=== PATIENT | male | born 1990 | race African-American/Black ===

== ENCOUNTER 2016-10-29 07:46 | Inpatient (IN) | payer OTHER ==
[~2016-10-29] VITALS: Ht 167.6 cm; Wt 59.2 kg
[2016-10-29] VITALS (11 sets, daily range): BP systolic 95–136; BP diastolic 62–78; PULSE 78–114; RESP 12–22; TEMP 97.6–98.8; O2SAT 98–100
[2016-10-29 07:51] LABS: MEAN CORPUSCULAR HGB CONC 29.5 % (32.0-36.0)
[2016-10-29] MEDS ORDERED: SODIUM CHLOR 0.9% 1000 ML INJ 1,000 ML IV SCH (07:51)
--- NOTE | 2016-10-29 07:54 | PD ---
HPI Chief Complaint: laceration Time Seen by Provider: 07:51 Travel History International Travel<30 days: No Contact w/Intl Traveler<30days: No Traveled to known affect area: No History of Present Illness HPI Patient is a 25-year-old male presents from [facility] after intentionally cutting himself with a razor blade last night. Patient has had bilateral antecubital fossa laceration. Also has a superficial laceration of the dorsum of the left hand. Patient has been on seclusion in [facility]. Patient apparently cut his right before meals fossa last night and was glued at the [facility] at the [facility]. He has since reopen this wound. Patient on arrival is reluctant to give any information, he is alert and awake and protecting his airway but will not give me any history. PFS Past Medical History Narrative Medical Unable to obtain. Social History Tobacco Use: No Allergies-Medications (Allergen,Severity, Reaction): Coded Allergies: Haldol (Verified Allergy, Unknown, 10/29/16) Reported Meds & Prescriptions Reported Meds & Active Scripts Active No Active Prescriptions or Reported Medications Review of Systems Except as stated in HPI: all other systems reviewed are Neg Physical Exam Narrative GENERAL: Well-developed well-nourished, diaphoretic and tachycardic. SKIN: Warm and dry. There are 3 small lacerations that I can see on his person. He was stripped completely naked for my examination. He has lacerations running across the bilateral antecubital fossae approximately 2 cm in length each, it is through the fascia.. No active bleeding at this time. There is also a 1 cm laceration to the dorsum of his left hand again without any active bleeding and appears to be through the fascia. HEAD: Atraumatic. Normocephalic. EYES: Pupils equal and round. No scleral icterus. No injection or drainage. ENT: No nasal bleeding or discharge. Mucous membranes pink and moist. NECK: Trachea midline. No JVD. CARDIOVASCULAR: Regular rate and rhythm. No murmur appreciated. RESPIRATORY: No accessory muscle use. Clear to auscultation. Breath sounds equal bilaterally. GASTROINTESTINAL: Abdomen soft, non-tender, nondistended. Hepatic and splenic margins not palpable. MUSCULOSKELETAL: No obvious deformities. No clubbing. No cyanosis. No edema. Pulses are 2+ and bilaterally equal in all 4 extremities, patient has all range of motions and flexion extension of the wrist hands and forearms. NEUROLOGICAL: Awake and alert. No obvious cranial nerve deficits. Motor grossly within normal limits. Normal speech. PSYCHIATRIC: Appropriate mood and affect; insight and judgment normal. Data Data Last Documented VS Vital Signs Date Time Temp Pulse Resp B/P Pulse Ox O2 Delivery O2 Flow Rate FiO2 10/29/16 12:40 98.6 98 14 132/71 100 Room Air Orders Complete Blood Count With Diff (10/29/16 07:51) Basic Metabolic Panel (Bmp) (10/29/16 07:51) Iv Access Insert/Monitor (10/29/16 07:51) Ecg Monitoring (10/29/16 07:51) Oximetry (10/29/16 07:51) Sodium Chlor 0.9% 1000 Ml Inj (Ns 1000 M (10/29/16 07:51) Sodium Chloride 0.9% Flush (Ns Flush) (10/29/16 08:00) Lidocai-Epi 1%-1:100,000 Inj (Xylocaine- (10/29/16 08:00) Lactic Acid (10/29/16 08:29) Ondansetron Inj (Zofran Inj) (10/29/16 09:03) Ondansetron Odt (Zofran Odt) (10/29/16 09:15) Red Blood Cells (Rbc) (10/29/16 09:09) Blood Product Administration .UPON TRANSFUSION (10/29/16 09:09) Sodium Chlor 0.9% 250 Ml Inj (Ns 250 Ml (10/29/16 09:15) Type And Screen (10/29/16 09:09) Ondansetron Inj (Zofran Inj) (10/29/16 09:30) Sodium Chlor 0.9% 1000 Ml Inj (Ns 1000 M (10/29/16 10:15) Lactic Acid (10/29/16 10:42) Hgb & Hct (10/29/16 10:42) Admit Order (Ed Use Only) (10/29/16 ) Labs Laboratory Tests Test 10/29/16 10/29/16 10/29/16 10/29/16 08:20 09:00 10:41 11:15 White Blood Count 18.4 TH/MM3 Red Blood Count 4.28 MIL/MM3 Hemoglobin 8.0 GM/DL 5.1 GM/DL Hematocrit 27.1 % 16.9 % Mean Corpuscular Volume 63.4 FL Mean Corpuscular Hemoglobin 18.7 PG Mean Corpuscular Hemoglobin 29.5 % Concent Red Cell Distribution Width 22.5 % Platelet Count 253 TH/MM3 Mean Platelet Volume 8.6 FL Neutrophils (%) (Auto) 87.0 % Lymphocytes (%) (Auto) 7.7 % Monocytes (%) (Auto) 5.1 % Eosinophils (%) (Auto) 0.0 % Basophils (%) (Auto) 0.2 % Neutrophils # (Auto) 16.0 TH/MM3 Lymphocytes # (Auto) 1.4 TH/MM3 Monocytes # (Auto) 0.9 TH/MM3 Eosinophils # (Auto) 0.0 TH/MM3 Basophils # (Auto) 0.0 TH/MM3 CBC Comment AUTO DIFF Differential Comment AUTO DIFF CONFIRMED Polychromasia 2.0 % Spherocytes OCC Ovalocytes 1+ Acanthocytes OCC Keratocytes OCC Sodium Level 139 MEQ/L Potassium Level 3.8 MEQ/L Chloride Level 105 MEQ/L Carbon Dioxide Level 20.3 MEQ/L Anion Gap 14 MEQ/L Blood Urea Nitrogen 9 MG/DL Creatinine 1.24 MG/DL Estimat Glomerular Filtration 88 ML/MIN Rate Random Glucose 182 MG/DL Calcium Level 8.4 MG/DL Blood Type O POSITIVE O POSITIVE Antibody Screen NEGATIVE Crossmatch Leukocyte-Reduced Red Blood Cells Blood Bank Comment Lactic Acid Level 7.0 mmol/L 1.9 mmol/L MDM Medical Decision Making Medical Screen Exam Complete: Yes Emergency Medical Condition: Yes Differential Diagnosis Laceration, hypovolemia, blood loss anemia, suicide attempt. Narrative Course Patient was roomed in emergency Department, tachycardic and diaphoretic and concern for acute blood loss anemia. An 18-gauge ultrasound IV was placed in the left antecubital fossa, this was placed just medial to the laceration. Patient was given 2 L of fluid IV, lactic acid was 7 prior to fluid administration, he did vomit just prior to having an IV placed and Zofran was given as well. Patient was reassessed after 2 L of fluid bolus and artery had blood ordered at this point. His heart rate is improving and he is no longer nauseous. A repeat H&H was sent his hemoglobin is now 5 from 8, lactic acid is now normal. Blood transfusion is in process. Patient was to be discussed with Dr. Rose for admission. Patient was consented emergently for blood, he apparently has an undiagnosed psychosis is unwilling to give any history. He is under arrest and therefore there is no indication to Jaramillo act him. He does not had the ability to make his own medical decisions or refuse blood at this time. Critical Care Narrative Aggregate critical care time was 35 minutes. Time to perform other separately billable procedures was not included in the critical care time. My time did not include minutes spent treating any other patients simultaneously or on activities that did not directly contribute to the patient's treatment. The services I provided to this patient were to treat and/or prevent clinically significant deterioration that could result in: , disability, organ failure, permanent disability, need for intubation. I provided critical care services requiring my management, as noted below: Chart data review, documentation time, medication orders and management, vital sign assessments/reviewing monitor data, ordering and reviewing lab tests, ordering and interpreting/reviewing x-rays and diagnostic studies, care of the patient and discussion of the patient with the admitting physicians. Diagnosis Primary Impression: Hypovolemic shock Additional Impressions: Acute blood loss anemia Laceration Admitting Information Admitting Physician Requests: Admit Scripts No Active Prescriptions or Reported Meds Condition: Stable Dante Gotti MD Oct 29, 2016 07:54
[2016-10-29] MEDS ORDERED: LIDOCAINE 1%/EPINEPHrine 1:100,000 SOLN 20 ML VIAL INFIL ONE (08:00)
[2016-10-29] MEDS ORDERED: SODIUM CHLORIDE 0.9% FLUSH 5 ML FLUSH IVF PRN (08:00)
[2016-10-29 08:31] LABS: BASOPHIL % 0.2 % (0.0-2.0); HEMATOCRIT 27.1 % (39.0-51.0); LYMPH % 7.7 % (9.0-44.0); LYMPHOCYTE # 1.4 TH/MM3 (1.0-4.8); MEAN CELL VOLUME 63.4 FL (80.0-100.0); MEAN CORPUSCULAR HEMOGLOBIN 18.7 PG (27.0-34.0); MONO % 5.1 % (0.0-8.0); PLATELET COUNT 253 TH/MM3 (150-450); RED BLOOD COUNT 4.28 MIL/MM3 (4.50-5.90); RED CELL DISTRIBUTION WIDTH 22.5 % (11.6-17.2); WHITE BLOOD COUNT 18.4 TH/MM3 (4.0-11.0)
[2016-10-29 08:34] LABS: HEMO FLAGS AUTO DIFF
[2016-10-29 08:54] LABS: BICARBONATE 20.3 MEQ/L (21.0-32.0)
[2016-10-29 08:55] LABS: POTASSIUM 3.8 MEQ/L (3.5-5.1)
[2016-10-29] MEDS ORDERED: ONDANSETRON HCL 4 MG/2 ML VIAL ONE (09:03)
[2016-10-29 09:15] LABS: OVALOCYTES 1+ (NORMAL)
[2016-10-29] MEDS ORDERED: SODIUM CHLOR 0.9% 250 ML INJ 250 ML IV ONE (09:15)
[2016-10-29] MEDS ORDERED: ONDANSETRON ODT 4 MG TAB PO ONE (09:15)
[2016-10-29 09:17] LABS: ACANTHOCYTES OCC (NORMAL); KERATOCYTES OCC (NORMAL); SCAN/DIFF AUTO DIFF CONFIRMED; SPHEROCYTES OCC (NORMAL)
[2016-10-29] MEDS ORDERED: ONDANSETRON HCL 4 MG/2 ML VIAL IV PUSH ONE (09:30)
--- NOTE | 2016-10-29 09:48 | PD ---
Physical Exam Narrative I was asked by Dr. Gotti to repair patient's lacerations. Please see his H&P for full details. Data Data Last Documented VS Vital Signs Date Time Temp Pulse Resp B/P Pulse Ox O2 Delivery O2 Flow Rate FiO2 10/29/16 09:21 97.6 114 22 95/62 100 Room Air Orders Complete Blood Count With Diff (10/29/16 07:51) Basic Metabolic Panel (Bmp) (10/29/16 07:51) Iv Access Insert/Monitor (10/29/16 07:51) Ecg Monitoring (10/29/16 07:51) Oximetry (10/29/16 07:51) Sodium Chlor 0.9% 1000 Ml Inj (Ns 1000 M (10/29/16 07:51) Sodium Chloride 0.9% Flush (Ns Flush) (10/29/16 08:00) Lidocai-Epi 1%-1:100,000 Inj (Xylocaine- (10/29/16 08:00) Lactic Acid (10/29/16 08:29) Ondansetron Inj (Zofran Inj) (10/29/16 09:03) Ondansetron Odt (Zofran Odt) (10/29/16 09:15) Red Blood Cells (Rbc) (10/29/16 09:09) Blood Product Administration .UPON TRANSFUSION (10/29/16 09:09) Sodium Chlor 0.9% 250 Ml Inj (Ns 250 Ml (10/29/16 09:15) Type And Screen (10/29/16 09:09) Ondansetron Inj (Zofran Inj) (10/29/16 09:30) Labs Laboratory Tests Test 10/29/16 08:20 White Blood Count 18.4 TH/MM3 Red Blood Count 4.28 MIL/MM3 Hemoglobin 8.0 GM/DL Hematocrit 27.1 % Mean Corpuscular Volume 63.4 FL Mean Corpuscular Hemoglobin 18.7 PG Mean Corpuscular Hemoglobin 29.5 % Concent Red Cell Distribution Width 22.5 % Platelet Count 253 TH/MM3 Mean Platelet Volume 8.6 FL Neutrophils (%) (Auto) 87.0 % Lymphocytes (%) (Auto) 7.7 % Monocytes (%) (Auto) 5.1 % Eosinophils (%) (Auto) 0.0 % Basophils (%) (Auto) 0.2 % Neutrophils # (Auto) 16.0 TH/MM3 Lymphocytes # (Auto) 1.4 TH/MM3 Monocytes # (Auto) 0.9 TH/MM3 Eosinophils # (Auto) 0.0 TH/MM3 Basophils # (Auto) 0.0 TH/MM3 CBC Comment AUTO DIFF Differential Comment AUTO DIFF CONFIRMED Polychromasia 2.0 % Spherocytes OCC Ovalocytes 1+ Acanthocytes OCC Keratocytes OCC Sodium Level 139 MEQ/L Potassium Level 3.8 MEQ/L Chloride Level 105 MEQ/L Carbon Dioxide Level 20.3 MEQ/L Anion Gap 14 MEQ/L Blood Urea Nitrogen 9 MG/DL Creatinine 1.24 MG/DL Estimat Glomerular Filtration 88 ML/MIN Rate Random Glucose 182 MG/DL Calcium Level 8.4 MG/DL MDM Supervised Visit with JUICE: No Procedures Procedure Narrative LACERATION REPAIR LOCATION: Left antecubital LENGTH: Approximately 2 cm NUMBER OF STITCHES/SHARI: 1 simple interrupted and one simple mattress REPAIR: Verbal consent was obtained. The area of the laceration was cleaned and prepped. The laceration was infiltrated with lidocaine with epi. The wound was copiously irrigated and explored without evidence of foreign body, bony involvement, ligament injury, tendon injury, or neurovascular injury. The wound was closed using 4-0 nylon. This was a single layer repair. A sterile dressing was applied by nurse. The patient was advised to keep the affected area as clean and dry as possible using soap and water. There were no complications. Patient tolerated the procedure well. LACERATION REPAIR LOCATION: Right antecubital LENGTH: Approximately 2.5 cm NUMBER OF STITCHES/SHARI: 2 simple interrupted and one simple mattress REPAIR: Verbal consent was obtained. The area of the laceration was cleaned and prepped. The laceration was infiltrated with lidocaine with epi. The wound was copiously irrigated and explored without evidence of foreign body, bony involvement, ligament injury, tendon injury, or neurovascular injury. The wound was closed using 4-0 nylon. This was a single layer repair. A sterile dressing was applied by nurse. The patient was advised to keep the affected area as clean and dry as possible using soap and water. There were no complications. Patient tolerated the procedure well. LACERATION REPAIR LOCATION: Right hand dorsal aspect LENGTH: Approximately 1 cm NUMBER OF STITCHES/SHARI: 1 simple mattress REPAIR: Verbal consent was obtained. The area of the laceration was cleaned and prepped. The laceration was infiltrated with lidocaine with epi. The wound was copiously irrigated and explored without evidence of foreign body, bony involvement, ligament injury, tendon injury, or neurovascular injury. The wound was closed using 4-0 nylon. This was a single layer repair. A sterile dressing was applied by nurse. The patient was advised to keep the affected area as clean and dry as possible using soap and water. There were no complications. Patient tolerated the procedure well. Additional Instruction: Suicide watch until no longer suicidal: This means finger foods only, no sharps , paper scrubs. Bradley Moe Oct 29, 2016 09:48
[2016-10-29] MEDS ORDERED: SODIUM CHLOR 0.9% 1000 ML INJ 1,000 ML IV ONE (10:15)
[2016-10-29 11:32] LABS: REVIEW FLAG FINAL
[2016-10-29 11:36] LABS: HEMATOCRIT 16.9 % (39.0-51.0)
--- NOTE | 2016-10-29 16:11 | HHI.HP ---
[facility] No Primary Care Physician Admission Diagnosis Acute blood loss anemia, Laceration. Diagnoses: Chief Complaint: Anemia, laceration Travel History International Travel<30 Days: No Contact w/Intl Traveler <30 Da: No Traveled to Known Affected Are: No History of Present Illness This is a 25-year-old male patient who denies prior medical history or surgical interventions. Patient was brought in from corrections facility after self laceration 3. Patient does report he was trying to kill himself. Per report patient cut his bilateral antecubital and right hand with a razor blade. Patient lost a large amount of blood and was brought to the emergency department for evaluation. Patient was found to have severe symptomatic anemia was given 2 units packed red blood cells and emergency department. Patient evaluated by Dr. Rose reports he feels thirsty, lightheaded with standing and mildly nauseous. Patient denies chest pain diarrhea or constipation. Review of Systems Except as stated in HPI: all other systems reviewed are Neg Past Family Social History Past Medical History Denies prior medical history including diabetes hypertension anemia clotting or bleeding disorders Past Surgical History Denies prior surgeries Reported Medications Reports he does not take medications on a daily basis Allergies: Coded Allergies: Haldol (Verified Allergy, Unknown, 10/29/16) Active Ordered Medications Current Medications Medications (Trade) Dose Ordered Sig/Arely Route Start Time Stop Time Status Last Admin IV Flush 2 ml 2 ml UNSCH PRN IVF 10/29/16 08:00 (NS 250 ml Inj) 250 ml @ 15 mls/hr ONCE ONCE IV 10/29/16 09:15 10/30/16 01:54 10/29/16 12:25 Family History Reports was a family medical history positive for diabetes mellitus Social History Patient is currently in corrections facility. Patient reports he has 7 years left on his sentence Reports he smokes 1 cigarette per day Denies EtOH use Physical Exam Vital Signs Vital Signs Date Time Temp Pulse Resp B/P Pulse Ox O2 Delivery O2 Flow Rate FiO2 10/29/16 15:15 98.8 87 13 127/78 99 Room Air 10/29/16 13:50 80 14 126/66 100 10/29/16 12:40 98.6 98 14 132/71 100 Room Air 10/29/16 12:25 98.7 108 12 111/72 98 Room Air 10/29/16 09:55 82 12 115/62 100 Room Air 10/29/16 09:21 97.6 114 22 95/62 100 Room Air 10/29/16 08:26 97.7 112 20 136/65 100 Physical Exam GENERAL: This is a well-nourished, well-developed patient SKIN: Sutured lacerations bilateral antecubital fossa and right hand- no active bleeding HEAD: Atraumatic. Normocephalic. No temporal or scalp tenderness. EYES: Extraocular motions intact. No scleral icterus. No injection or drainage. Conjunctiva pale CARDIOVASCULAR: Regular rate and rhythm without murmurs, gallops, or rubs. RESPIRATORY: Clear to auscultation. Breath sounds equal bilaterally. No wheezes , rales, or rhonchi. GASTROINTESTINAL: Abdomen soft, non-tender, nondistended. MUSCULOSKELETAL: Extremities without clubbing, cyanosis, or edema. No joint tenderness, effusion, or edema noted. No calf tenderness. Negative Homans sign bilaterally. NEUROLOGICAL: Awake and alert. No focal deficits appreciated. Motor and sensory grossly within normal limits. Five out of 5 muscle strength in all muscle groups. Normal speech. Laboratory Laboratory Tests Test 10/29/16 10/29/16 10/29/16 10/29/16 08:20 09:00 10:41 11:15 White Blood Count 18.4 Red Blood Count 4.28 Hemoglobin 8.0 5.1 Hematocrit 27.1 16.9 Mean Corpuscular Volume 63.4 Mean Corpuscular Hemoglobin 18.7 Mean Corpuscular Hemoglobin 29.5 Concent Red Cell Distribution Width 22.5 Platelet Count 253 Mean Platelet Volume 8.6 Neutrophils (%) (Auto) 87.0 Lymphocytes (%) (Auto) 7.7 Monocytes (%) (Auto) 5.1 Eosinophils (%) (Auto) 0.0 Basophils (%) (Auto) 0.2 Neutrophils # (Auto) 16.0 Lymphocytes # (Auto) 1.4 Monocytes # (Auto) 0.9 Eosinophils # (Auto) 0.0 Basophils # (Auto) 0.0 CBC Comment AUTO DIFF Differential Comment AUTO DIFF CONFIRMED Polychromasia 2.0 Spherocytes OCC Ovalocytes 1+ Acanthocytes OCC Keratocytes OCC Sodium Level 139 Potassium Level 3.8 Chloride Level 105 Carbon Dioxide Level 20.3 Anion Gap 14 Blood Urea Nitrogen 9 Creatinine 1.24 Estimat Glomerular Filtration 88 Rate Random Glucose 182 Calcium Level 8.4 Blood Type O POSITIVE O POSITIVE Antibody Screen NEGATIVE Crossmatch Leukocyte-Reduced Red Blood Cells Blood Bank Comment Lactic Acid Level 7.0 1.9 Result Diagram: 10/30/1690610/30/16906 Assessment and Plan Assessment and Plan This is a 25-year-old male patient who denies prior medical history or surgical interventions. Patient was brought in from corrections facility after self laceration 3. Patient does report he was trying to kill himself. Per report patient cut his bilateral antecubital and right hand with a razor blade. Patient lost a large amount of blood and was brought to the emergency department for evaluation. Patient was found to have severe symptomatic anemia was given 2 units packed red blood cells and emergency department. Patient evaluated by Dr. Rose reports he feels thirsty, lightheaded with standing and mildly nauseous. Patient denies chest pain diarrhea or constipation. Severe symptomatic anemia- secondary to acute blood loss - patient at risk for hypovolemic shock Hemoglobin dropped to 5.1, per ER doctor patient was diaphoretic and tachycardic heart rate documented at 114 2 units packed red blood cells given in emergency department Every 6 hours H&H ordered Type and screen 2 additional units- Plan to transfuse if less than 7 Suicide attempt Patient has 2 correction facility guards at bedside at all times Suicide precautions Consult psychiatry DVT prophylaxis with SCDs unable to give chemical DVT prophylaxis due to severe anemia Discussed plan of care with patient here provider in nursing Written by Bobbi Landa, acting as scribe for Dr. Rose on 10/29/16 at 16:17. Physician Certification 2 Midnight Certification Type: Admission for Inpatient Services Order for Inpatient Services The services are ordered in accordance with Medicare regulations or non- Medicare payer requirements, as applicable. In the case of services not specified as inpatient-only, they are appropriately provided as inpatient services in accordance with the 2-midnight benchmark. Estimated LOS (days): 3 days is the estimated time the patient will need to remain in the hospital, assuming treatment plan goals are met and no additional complications. Post-Hospital Plan: Other (specify) (plan to discharge back to corrections facility) Attending Statement The documentation accurately reflects the work performed [id number] by me on at 16:17. Bobbi Landa Oct 29, 2016 16:11 Jovon Duong MD Nov 03, 2016 22:42
[2016-10-29] MEDS ORDERED: NALOXONE HCL 0.4 MG/ML AMP IV PRN (16:15)
[2016-10-29] MEDS ORDERED: SODIUM CHLORIDE 0.9% FLUSH 5 ML FLUSH FLUSH PRN (16:15)
[2016-10-29] MEDS: SODIUM CHLOR 0.9% 1000 ML INJ 1,000 ML IV SCH ×2 (16:23→18:16)
[2016-10-29] MEDS ORDERED: ONDANSETRON HCL 4 MG/2 ML VIAL IVP PRN (17:00)
[2016-10-29] MEDS ORDERED: ACETAMINOPHEN 325 MG TAB PO PRN (17:00)
[2016-10-29] MEDS: DOCUSATE SODIUM 100 MG CAP PO SCH (18:15)
[2016-10-29] MEDS: SODIUM CHLORIDE 0.9% FLUSH 5 ML FLUSH FLUSH SCH (21:00)
[2016-10-29 23:59] LABS: HEMATOCRIT 26.2 % (39.0-51.0)
[2016-10-30] VITALS: BP 118/64; PULSE 86; RESP 18; TEMP 98.9; O2SAT 100
[2016-10-30 03:45] LABS: HEMATOCRIT 23.3 % (39.0-51.0)
[2016-10-30] MEDS: DOCUSATE SODIUM 100 MG CAP PO SCH ×2 (05:00→17:00)
[2016-10-30 08:00] VITALS: BP 146/63; PULSE 81; RESP 20; TEMP 98.1; O2SAT 100
[2016-10-30] MEDS: SODIUM CHLORIDE 0.9% FLUSH 5 ML FLUSH FLUSH SCH (08:04)
[2016-10-30 09:00] VITALS: PULSE 74
[2016-10-30 10:17] VITALS: O2SAT 100
[2016-10-30 10:32] LABS: AUTOMATED NEUTROPHIL # 5.8 TH/MM3 (1.8-7.7); BASOPHIL # 0.1 TH/MM3 (0-0.2); BASOPHIL % 0.8 % (0.0-2.0); EOSINOPHIL # 0.1 TH/MM3 (0-0.4); EOSINOPHIL % 1.1 % (0.0-4.0); HEMATOCRIT 25.7 % (39.0-51.0); LYMPH % 15.7 % (9.0-44.0); LYMPHOCYTE # 1.2 TH/MM3 (1.0-4.8); MEAN CELL VOLUME 71.8 FL (80.0-100.0); MONO % 8.8 % (0.0-8.0); NEUT % 73.6 % (16.0-70.0); PLATELET COUNT 125 TH/MM3 (150-450); RED BLOOD COUNT 3.58 MIL/MM3 (4.50-5.90); RED CELL DISTRIBUTION WIDTH 25.2 % (11.6-17.2); WHITE BLOOD COUNT 7.8 TH/MM3 (4.0-11.0)
[2016-10-30 10:39] LABS: HEMO FLAGS AUTO DIFF
[2016-10-30 10:54] LABS: BICARBONATE 25.3 MEQ/L (21.0-32.0); POTASSIUM 4.1 MEQ/L (3.5-5.1)
[2016-10-30] MEDS: SODIUM CHLOR 0.9% 1000 ML INJ 1,000 ML IV SCH (10:57)
[2016-10-30 12:00] VITALS: BP 131/66; PULSE 85; RESP 20; TEMP 98.7; O2SAT 100
--- NOTE | 2016-10-30 13:00 | PD.CONS ---
Provisional Diagnosis Admission Date Oct 29, 2016 at 12:50 [place] I. Adjustment disorder with depressed mood [place] II. Antisocial personality disorder [place] III. Denies [place] IV. Currently and 15 years incarceration [place] V. 55 History of Present Illness Service Psychiatry Consult Requested By Primary Care Physician No Primary Care Physician HPI The patient is a 25-year-old man, currently in his seventh year of 15 years of incarceration, with psychiatric history of depression, self cutting behavior, usually without SI, previous psychiatric hospitalizations, he sees a psychiatrist in [place], not on medications right now, no significant medical history. Patient was brought in from corrections facility after self laceration 3. Patient does report he was trying to kill himself. Per report patient cut his bilateral antecubital and right hand with a razor blade. Patient lost a large amount of blood and was brought to the emergency department for evaluation. Patient was found to have severe symptomatic anemia was given 2 units packed red blood cells and emergency department. Patient was consulted to psychiatry to assess suicidal intention of his self cutting behavior. On psychiatric evaluation today patient was seen in the medical floor , he was accompanied by 2 correctional officers, patient is states that he feels much better, yesterday he was frustrated in [place], and he decided to cut himself. Patient says that he cut himself in order to release stress and anxiety. He says that he kind of enjoys to see his blood running his wrist. He has a long history of self cutting behavior and has been hospitalized for this in the past. At this moment the patient denies suicidal ideation, homicidal ideation, visual and auditory hallucinations. She is fully oriented in 3, no gross cognitive impairment observed. She denies the use of drugs and alcohol. Review of Systems Constitutional: DENIES: Diaphoretic episodes, Fatigue, Fever, Weight gain, Weight loss, Chills, Dizziness, Change in appetite, Night Sweats Endocrine: DENIES: Heat/cold intolerance, Polydipsia, Polyuria, Polyphagia Eyes: DENIES: Blurred vision, Diplopia, Eye inflammation, Eye pain, Vision loss , Photosensitivity, Double Vision Ears, nose, mouth, throat: DENIES: Tinnitus, Hearing loss, Vertigo, Nasal discharge, Oral lesions, Throat pain, Hoarseness, Ear Pain, Running Nose, Epistaxis, Sinus Pain, Toothache, Odynophagia Respiratory: DENIES: Apneas, Cough, Snoring, Wheezing, Hemoptysis, Sputum production, Shortness of breath Cardiovascular: DENIES: Chest pain, Palpitations, Syncope, Dyspnea on Exertion , PND, Lower Extremity Edema, Orthopnea, Claudication Genitourinary: DENIES: Sexual dysfunction, Urinary frequency, Urinary incontinence, Urgency, Hematuria, Dysuria, Nocturia, Penile Discharge, Testicular Pain, Testicular Swelling Musculoskeletal: DENIES: Joint pain, Muscle aches, Stiffness, Joint Swelling, Back pain, Neck pain Integumentary: DENIES: Abnormal pigmentation, Nail changes, Pruritus, Rash Hematologic/lymphatic: DENIES: Bruising, Lymphadenopathy Psychiatric: DENIES: Anxiety, Confusion, Mood changes, Depression, Hallucinations, Agitation, Suicidal Ideation, Homicidal Ideation, Delusions Past Family Social History Coded Allergies: Haldol (Verified Allergy, Unknown, 10/29/16) No Active Prescriptions or Reported Meds Current Medications Medications (Trade) Dose Ordered Sig/Arely Route Start Time Stop Time Status Last Admin (NS 1000 ml Inj) 1,000 ml @ 100 mls/hr Q10H IV 10/29/16 16:01 10/30/16 10:57 (NS Flush) 2 ml UNSCH PRN FLUSH 10/29/16 16:15 (NS Flush) 2 ml BID FLUSH 10/29/16 21:00 10/30/16 08:04 (Tylenol) 650 mg Q4H PRN PO 10/29/16 17:00 (Zofran Inj) 4 mg Q6H PRN IVP 10/29/16 17:00 (Colace) 100 mg Q12H PO 10/29/16 17:00 10/30/16 05:00 (Narcan Inj) 0.4 mg UNSCH PRN IV 10/29/16 16:15 Physical Exam Vital Signs Vital Signs Date Time Temp Pulse Resp B/P Pulse Ox O2 Delivery O2 Flow Rate FiO2 10/30/16 10:17 100 21 10/30/16 09:00 74 10/30/16 08:00 98.1 20 146/63 10/29/16 20:31 Room Air I/O 10/29/16 10/29/16 10/30/16 08:00 16:00 00:00 Intake Total 350 ml 240 ml Output Total 1500 ml Balance 350 ml -1260 ml Mental Status Examination Speech: Unremarkable, Pressured Orientation: x3 Memory: Unremarkable Thought Process: Logical Thought Content: Unremarkable Hallucination Type: None Suicidal Ideation: No Previous Suicide Attempts: Yes Homicidal Ideation: No Previous Homicide Attempts: No Insight: Good Affect: Good Affect if Inappropriate: Flat Mood: Appropriate Motor Activity: Normal gait Assessment & Plan Problem List: (1) Adjustment disorder with depressed mood Assessment & Plan: On psychotic evaluation patient does not have any evidence or report symptomatology of depression, anxiety, danny or psychosis. He denies suicidal or homicidal ideation, he denies visual and auditory hallucinations. Recent episode of self cutting seems to be more probably secondary to character structure and antisocial behavior than secondary to depression/psychosis. Patient has an extensive history of self cutting in the past to relieve stress and anxiety, and no with SI. He does not meet criteria for psychiatric admission at this moment. Patient to continue his psychiatric care in [place]. No psychotropics indicated, Please discharge the patient was escorts under suicidal watch. Extensive psychoeducation, supportive motivation provided. ICD Code: F43.21 Assessment & Plan Estimated LOS: Sumeet Groves MD Oct 30, 2016 13:00
[2016-10-30 13:32] LABS: OVALOCYTES 1+ (NORMAL); SCAN/DIFF AUTO DIFF CONFIRMED
--- NOTE | 2016-10-30 15:44 | HHI.PR ---
Subjective Remarks Follow up severe symptomatic anemia- secondary to acute blood loss and suicide attempt. Patient reports he is feeling well after blood. Denies SOB, chest pain, N/V/D/C , fever or chills. lacerations bilateral AC and right hand sutured dry and intact- no active bleeding Objective Vitals Vital Signs Date Time Temp Pulse Resp B/P Pulse Ox O2 Delivery O2 Flow Rate FiO2 10/30/16 12:00 98.7 85 20 131/66 100 10/30/16 10:17 100 21 10/30/16 09:00 74 10/30/16 08:00 98.1 81 20 146/63 100 10/30/16 00:00 98.9 86 18 118/64 100 10/29/16 20:31 Room Air 10/29/16 20:00 98.6 82 18 135/63 100 10/29/16 20:00 83 10/29/16 17:30 98.8 80 20 126/67 100 10/29/16 16:15 98.7 86 15 126/65 99 Room Air 10/29/16 16:10 98.7 78 14 122/63 98 Room Air I/O 10/29/16 10/29/16 10/29/16 10/30/16 10/30/16 10/30/16 07:00 15:00 23:00 07:00 15:00 23:00 Intake Total 590 ml 240 ml 2715 ml Output Total 1500 ml Balance -910 ml 240 ml 2715 ml Intake Oral 240 ml 240 ml IV Total 2715 ml Packed Cells 350 ml Output Urine Total 1500 ml # Voids 0 # Bowel Movements 0 0 Result Diagram: 10/30/1690610/30/16906 Objective Remarks GENERAL: This is a well-nourished, well-developed patient SKIN: Sutured lacerations bilateral antecubital fossa and right hand- no active bleeding HEAD: Atraumatic. Normocephalic. No temporal or scalp tenderness. EYES: Extraocular motions intact. No scleral icterus. No injection or drainage. Conjunctiva pale CARDIOVASCULAR: Regular rate and rhythm without murmurs, gallops, or rubs. RESPIRATORY: Clear to auscultation. Breath sounds equal bilaterally. No wheezes , rales, or rhonchi. GASTROINTESTINAL: Abdomen soft, non-tender, nondistended. MUSCULOSKELETAL: Extremities without clubbing, cyanosis, or edema. No joint tenderness, effusion, or edema noted. No calf tenderness. Negative Homans sign bilaterally. NEUROLOGICAL: Awake and alert. No focal deficits appreciated. Motor and sensory grossly within normal limits. Five out of 5 muscle strength in all muscle groups. Normal speech. Medications and IVs Current Medications Medications (Trade) Dose Ordered Sig/Arely Route Start Time Stop Time Status Last Admin (NS 1000 ml Inj) 1,000 ml @ 100 mls/hr Q10H IV 10/29/16 16:01 10/30/16 10:57 (NS Flush) 2 ml UNSCH PRN FLUSH 10/29/16 16:15 (NS Flush) 2 ml BID FLUSH 10/29/16 21:00 10/30/16 08:04 (Tylenol) 650 mg Q4H PRN PO 10/29/16 17:00 (Zofran Inj) 4 mg Q6H PRN IVP 10/29/16 17:00 (Colace) 100 mg Q12H PO 10/29/16 17:00 10/30/16 05:00 (Narcan Inj) 0.4 mg UNSCH PRN IV 10/29/16 16:15 (Ferrous Sulfate) 325 mg BID@12,17 PO 10/30/16 17:00 A/P Assessment and Plan This is a 25-year-old male patient who denies prior medical history or surgical interventions. Patient was brought in from corrections facility after self laceration 3. Patient does report he was trying to kill himself. Per report patient cut his bilateral antecubital and right hand with a razor blade. Patient lost a large amount of blood and was brought to the emergency department for evaluation. Patient was found to have severe symptomatic anemia was given 2 units packed red blood cells and emergency department. Patient evaluated by Dr. Rose reports he feels thirsty, lightheaded with standing and mildly nauseous. Patient denies chest pain diarrhea or constipation. Severe symptomatic anemia- secondary to acute blood loss - Resolved Hemoglobin dropped to 5.1 improved to 8.2 s/p 2 units PRBC Suicide attempt Patient has 2 correction facility guards at bedside at all times Suicide precautions Consult psychiatry- cleared for patient to back to correction facility on suicide watch DVT prophylaxis with SCDs unable to give chemical DVT prophylaxis due to severe anemia Discussed plan of care with patient, nursing and corrections officers at bedside Dr. Rose to call medical provider at correction s facility Patient may be discharge back to corrections facility in stable condition on suicide watch. Written by Bobbi Landa, acting as scribe for Dr. Rose on 10/30/16 at 15:43. Attending Statement The documentation accurately reflects the work performed [id number] by me on at 15:43. Bobbi Landa Oct 30, 2016 15:44 Jovon Duong MD Oct 30, 2016 15:55
--- NOTE | 2016-10-30 15:48 | HHI.DS ---
Discharge Summary Admission Date Oct 29, 2016 at 12:50 Discharge Date: Oct 30, 2016 Admitting Diagnosis Acute blood loss anemia, Laceration. (1) Acute blood loss anemia ICD Code: D62 Diagnosis: Principal (2) Laceration ICD Code: T14.8 Diagnosis: Principal (3) Adjustment disorder with depressed mood ICD Code: F43.21 Diagnosis: Secondary Procedures LACERATION REPAIR LOCATION: Left antecubital, Right antecubital and Right hand dorsal aspect Brief History - From Admission This is a 25-year-old male patient who denies prior medical history or surgical interventions. Patient was brought in from corrections facility after self laceration 3. Patient does report he was trying to kill himself. Per report patient cut his bilateral antecubital and right hand with a razor blade. Patient lost a large amount of blood and was brought to the emergency department for evaluation. Patient was found to have severe symptomatic anemia was given 2 units packed red blood cells and emergency department. Patient evaluated by Dr. Rose reports he feels thirsty, lightheaded with standing and mildly nauseous. Patient denies chest pain diarrhea or constipation. CBC/BMP: 10/30/16 0907 10/30/16 0907 Significant Findings Laboratory Tests Test 10/29/16 10/29/16 10/29/16 10/29/16 08:20 09:00 11:15 22:57 White Blood Count 18.4 TH/MM3 (4.0-11.0) Red Blood Count 4.28 MIL/MM3 (4.50-5.90) Hemoglobin 8.0 GM/DL 5.1 GM/DL 8.5 GM/DL (13.0-17.0) (13.0-17.0) (13.0-17.0) Hematocrit 27.1 % 16.9 % 26.2 % (39.0-51.0) (39.0-51.0) (39.0-51.0) Mean Corpuscular Volume 63.4 FL (80.0-100.0) Mean Corpuscular Hemoglobin 18.7 PG (27.0-34.0) Mean Corpuscular Hemoglobin 29.5 % Concent (32.0-36.0) Red Cell Distribution Width 22.5 % (11.6-17.2) Neutrophils (%) (Auto) 87.0 % (16.0-70.0) Lymphocytes (%) (Auto) 7.7 % (9.0-44.0) Neutrophils # (Auto) 16.0 TH/MM3 (1.8-7.7) Polychromasia 2.0 % (0.0-1.9) Ovalocytes 1+ (NORMAL) Carbon Dioxide Level 20.3 MEQ/L (21.0-32.0) Estimat Glomerular Filtration 88 ML/MIN (>89) Rate Random Glucose 182 MG/DL (74-106) Calcium Level 8.4 MG/DL (8.5-10.1) Lactic Acid Level 7.0 mmol/L (0.4-2.0) Test 10/30/16 10/30/16 03:23 09:07 Hemoglobin 7.8 GM/DL 8.2 GM/DL (13.0-17.0) (13.0-17.0) Hematocrit 23.3 % 25.7 % (39.0-51.0) (39.0-51.0) Red Blood Count 3.58 MIL/MM3 (4.50-5.90) Mean Corpuscular Volume 71.8 FL (80.0-100.0) Mean Corpuscular Hemoglobin 23.0 PG (27.0-34.0) Red Cell Distribution Width 25.2 % (11.6-17.2) Platelet Count 125 TH/MM3 (150-450) Neutrophils (%) (Auto) 73.6 % (16.0-70.0) Monocytes (%) (Auto) 8.8 % (0.0-8.0) Ovalocytes 1+ (NORMAL) Chloride Level 113 MEQ/L (98-107) Blood Urea Nitrogen 4 MG/DL (7-18) Calcium Level 8.0 MG/DL (8.5-10.1) PE at Discharge GENERAL: This is a well-nourished, well-developed patient SKIN: Sutured lacerations bilateral antecubital fossa and right hand- no active bleeding HEAD: Atraumatic. Normocephalic. No temporal or scalp tenderness. EYES: Extraocular motions intact. No scleral icterus. No injection or drainage. Conjunctiva pale CARDIOVASCULAR: Regular rate and rhythm without murmurs, gallops, or rubs. RESPIRATORY: Clear to auscultation. Breath sounds equal bilaterally. No wheezes , rales, or rhonchi. GASTROINTESTINAL: Abdomen soft, non-tender, nondistended. MUSCULOSKELETAL: Extremities without clubbing, cyanosis, or edema. No joint tenderness, effusion, or edema noted. No calf tenderness. Negative Homans sign bilaterally. NEUROLOGICAL: Awake and alert. No focal deficits appreciated. Motor and sensory grossly within normal limits. Five out of 5 muscle strength in all muscle groups. Normal speech. Hospital Course Patient is a 25-year-old male presents from senior living after intentionally cutting himself with a razor blade the night before night. Patient has had bilateral antecubital fossa lacerations Also has a superficial laceration of the dorsum of the right hand. Patient underwent laceration repair of a bilateral antecubital fossa and right hand dorsal aspect in emergency department. Patient 's hemoglobin dropped to 5.1 was given 2 units packed red blood cells hemoglobin raised to 8.2. Patient and stable condition faster than expected. Patient was also seen by psychiatry and cleared for patient to back to correction facility on suicide watch. Dr. Rose to call medical provider at correction s facility Patient discharge back to corrections facility in stable condition on suicide watch. Pt Condition on Discharge: Stable Discharge Disposition: Dis to Court Law Enforce[employer] Discharge Time: > 30 minutes Discharge Instructions DIET: Follow Instructions for: As Tolerated, No Restrictions Activities you can perform: See Additionl Instruction Other Activity Instructions: no heavy lifting Follow up Referrals: PCP Follow-up - 1 Week New Medications: Ferrous Sulfate (Ferrous Sulfate) 325 Mg Tab 325 MG PO BID@12,17 anemia #60 TAB Additional Information Patient is to have sutures removed in 2 weeks. Called facility to speak with physician information security manager - digital production operator told me physician not available on weekends. Ii gave some details of the patient's current status and told them patient is getting discharged. All or portions of this note were transcribed by ivette munoz. I, Dr. Jovon Rosemus personally performed the history, physical exam, and medical decision making; and confirmed the accuracy of the information in the transcribed note. Authenticated by Dr. Jovon Larson on 10/30/16 at 15:57. Bobbi Munoz Oct 30, 2016 15:48 Jovon Duong MD Oct 30, 2016 15:56
[2016-10-30] MEDS ORDERED: FERR325T PO (15:58)
[2016-10-30] MEDS ORDERED: FERROUS SULFATE 325 MG (65 MG ELEMENTAL IRON) TAB PO SCH (17:00)
== END 2016-10-30 18:00 | DRG 604 ==
LOC: NEPE 07:46 → NEDA 12:50 → N04A 17:45
PROVIDERS: ADMIT Hospitalist; ATTEND Hospitalist
PROC: 0HQFXZZ Repair Right Hand Skin, External Approach (ICD-10-PCS; principal; 2016-10-29)
PROC: 0HQEXZZ Repair Left Lower Arm Skin, External Approach (ICD-10-PCS; 2016-10-29)
PROC: 0HQDXZZ Repair Right Lower Arm Skin, External Approach (ICD-10-PCS; 2016-10-29)
PROC: 30233N1 Transfusion of Nonautologous Red Blood Cells into Peripheral Vein, Percutaneous Approach (ICD-10-PCS; 2016-10-29)
DX: S51.012A Laceration without foreign body of left elbow, initial encounter (principal); R57.1 Hypovolemic shock; D62 Acute posthemorrhagic anemia; S51.011A Laceration without foreign body of right elbow, initial encounter; S61.411A Laceration without foreign body of right hand, initial encounter; X78.9XXA Intentional self-harm by unspecified sharp object, initial encounter; Y93.9 Activity, unspecified; Y92.141 Dining room in prison as the place of occurrence of the external cause; Z65.3 Problems related to other legal circumstances; F43.21 Adjustment disorder with depressed mood; F41.9 Anxiety disorder, unspecified; F17.210 Nicotine dependence, cigarettes, uncomplicated; F60.2 Antisocial personality disorder; Z91.5 Personal history of self-harm
CPT/HCPCS: 12002; 36430; 80048; 83605; 85014; 85018; 85025; 86850; 86900; 86901; 86920; 96360; 96361; J2405; J7030; J7050; P9016